=== PATIENT | female | born 1985 | race Caucasian/White ===

== ENCOUNTER 2017-01-02 19:41 | Emergency (ER) | payer MEDICAID ==
--- NOTE | 2017-01-03 04:15 | RADRPT ---
PROCEDURE: Obstetrical ultrasound. CLINICAL INDICATION: Pelvic pain. TECHNIQUE: Multiple sonographic images of the pelvis were obtained with transabdominal and endova ginal technique. Images were obtained with benton scale and color Doppler. COMPARISON: None. FINDINGS: No abnormal uterine mass is identified. There is an intrauterine gestational sac with a yolk sac id entified. No pole is identified. The mean sac diameter averages 0.59 cm, compatible with 5 we eks and 1 day gestation. No subchorionic collection is identified. There is trace free fluid within the right adnexa. The right ovary measures 4.6 x 3.6 x 3.4 cm and the left ovary measures 2.8 x 1 172.4 cm. There is normal flow to both ovaries. There is an anechoi c cyst within the right ovary measuring 3.1 x 2.9 x 2.6 cm. There is no suspicious adnexal mass iden tified. IMPRESSION: Intrauterine gestational sac with a yolk sac identified, compatible with 5 weeks and 1 day. No pole is identified at this time. Short-term follow-up ultrasound is recommended. Right ovarian 3.1 cm cyst. Trace pelvic free fluid. .Mark Ward MD, MD Date Time Electronically viewed and signed by .Mark Ward MD, MD on 01/03/2017 04:15 .T/
--- NOTE | 2017-01-03 04:54 | ERD ---
ER Documentation Chief Complaint Chief Complaint HPI This is an otherwise healthy 31-year-old female is approximately 6 weeks , who comes to the emergency department for complaints of left lower quadrant pain 2 weeks. Patient rates the pain as an intermittent 5 out of 10 cramping pelvic pain. She denies fever, chills, vaginal bleeding, vaginal discharge, dysuria or hematuria. She denies other abdominal pain, vomiting or diarrhea but does note mild nausea. Patient A1. ROS All systems reviewed and are negative except as per history of present illness. Medications Home Meds Active Scripts Acetaminophen* (Tylophen*) 500 Mg Capsule, 1 CAP PO Q6H Y for PAIN AND OR ELEVATED TEMP, #20 CAP Prov:NELLY BETTS PA-C 02/01/17 Allergies Allergies: Coded Allergies: No Known Allergy (Unverified , 01/03/17) Physical Exam Physical Exam Const: Well-developed, well-nourished, in no acute distress Head: Atraumatic Eyes: Normal Conjunctiva ENT: Normal External Ears, Nose and Mouth. Neck: Full range of motion..~ No meningismus. Resp: Clear to auscultation bilaterally Cardio: Regular rate and rhythm, no murmurs Abd: Soft, non tender, non distended. Normal bowel sounds Skin: No petechiae or rashes Back: No midline or flank tenderness Ext: No cyanosis, or edema Neur: Awake and alert Psych: Normal Mood and Affect Results 24 hrs Laboratory Tests Test 01/03/17 12:16 Lab Scanned Report [id number] Procedures/MDM PROCEDURE: Obstetrical ultrasound. CLINICAL INDICATION: Pelvic pain. TECHNIQUE: Multiple sonographic images of the pelvis were obtained with transabdominal and endovaginal technique. Images were obtained with benton scale and color Doppler. COMPARISON: None. FINDINGS: No abnormal uterine mass is identified. There is an intrauterine gestational sac with a yolk sac identified. No pole is identified. The mean sac diameter averages 0.59 cm, compatible with 5 weeks and 1 day gestation. No subchorionic collection is identified. There is trace free fluid within the right adnexa. The right ovary measures 4.6 x 3.6 x 3.4 cm and the left ovary measures 2.8 x 1 172.4 cm. There is normal flow to both ovaries. There is an anechoic cyst within the right ovary measuring 3.1 x 2.9 x 2.6 cm. There is no suspicious adnexal mass identified. IMPRESSION: Intrauterine gestational sac with a yolk sac identified, compatible with 5 weeks and 1 day. No pole is identified at this time. Short-term follow-up ultrasound is recommended. Right ovarian 3.1 cm cyst. Trace pelvic free fluid. .Mark Ward MD, Date Time Electronically viewed and signed by .Mark Ward MD, MD on 01/03/2017 04:15 .T/ CC: TAYE GAO PA-C This is an otherwise healthy, nontoxic and well-nourished 31-year-old female who presents the emergency department for complaints of intermittent left sided pelvic pain over the past 2 weeks. Denied other symptoms was nontender to palpation of her abdomen. No signs reviewed and within normal limits upon arrival. Vaginal ultrasound revealed an intrauterine consisting of yolk and sac estimated at 5 weeks 1 day. No pole is identified. There is no evidence of ectopic noted on ultrasound. She is also noted to have a right-sided ovarian cyst. History, physical, imaging and lab studies consistent with left lower pelvic pain of early . At this time low suspicion for ectopic , appendicitis, diverticulitis, bowel obstruction, cholecystitis, urinary tract infection, pyelonephritis, or other acute abdomen. Patient received Zofran while in emergency department and reported improvement of nausea symptoms. I have recommended for her to follow-up with her [employer] specialist in 48 hours for a repeat ultrasound. Resources provided. Patient agrees with plan. Based on patient's history of present illness and physical examination the decision was made to discharge. The patient was re-evaluated after ED treatment and stabilizing measures, and symptoms have improved. There is no evidence of life threatening injuries or illnesses at this time. On re-examination, patient resting in no distress, stable vital signs, reports feeling better and safe for discharge with outpatient follow up with PMD in 1-2 days. Patient given return precautions. Departure Diagnosis: Primary Impression: Pelvic pain during Additional Impressions: Ovarian cyst Laterality: left Qualified Code: N83.202 - Cyst of left ovary Nausea TAYE GAO PA-C Jan 03, 2017 04:54
== END 2017-01-02 22:00 | disposition home or self-care (01) ==
LOC: FTE 19:41 → E/R 22:00
DX: O26.891 Other specified pregnancy related conditions, first trimester (principal); R10.2 Pelvic and perineal pain; O34.81 Maternal care for other abnormalities of pelvic organs, first trimester; R11.0 Nausea; Z3A.01 Less than 8 weeks gestation of pregnancy
CPT/HCPCS: 76801; 76817

== ENCOUNTER 2017-01-30 11:38 | Emergency (ER) | payer MEDICAID ==
[~2017-01-30] VITALS: Wt 49.2 kg
[2017-01-30 14:10] LABS: BASOPHIL # 0.1 10^3/ul (0.0-0.1); BASOPHILS % 0.7 % (0.0-2.0); EOSINOPHILS # 0.2 10^3/ul (0.0-0.5); EOSINOPHILS % 2.4 % (0.0-7.0); HEMATOCRIT 41.2 % (37.0-47.0); HEMOGLOBIN 14.3 g/dl (12.0-16.0); LYMPHOCYTES # 1.8 10^3/ul (0.8-2.9); LYMPHOCYTES % 25.8 % (15.0-51.0); MEAN CORPUSCULAR HEMOGLOBIN 31.2 pg (29.0-33.0); MEAN CORPUSCULAR HGB CONC 34.7 g/dl (32.0-37.0); MEAN PLATELET VOLUME 9.3 fl (7.4-10.4); MONOCYTE # 0.5 10^3/ul (0.3-0.9); MONOCYTES % 7.1 % (0.0-11.0); NEUTROPHIL # 4.3 10^3/ul (1.6-7.5); NEUTROPHILS % 63.7 % (39.0-77.0); PLATELET COUNT 266 10^3/UL (140-415); RED BLOOD COUNT 4.58 10^6/ul (4.20-5.40); RED CELL DISTRIBUTION WIDTH 11.6 % (11.5-14.5); WHITE BLOOD COUNT 6.8 10^3/ul (4.8-10.8)
--- NOTE | 2017-01-30 14:34 | RADRPT ---
PROCEDURE: Obstetrical ultrasound . CLINICAL INDICATION: Vaginal bleeding TECHNIQUE: Multiple sonographic images of the pelvis were obtained utilizing a transabdominal tech nique. The images were reviewed on a PACS workstation. COMPARISON: US PELVIS 01/03/2017 FINDINGS: There is a single intrauterine gestation with the crown-rump length measuring 1.9 cm and the gestati onal sac measuring 2.1 cm, corresponding to a gestational age of 7 weeks and 5 days. No heart tones are identified. The ovaries are normal. No significant free fluid is present within the pelvis. No abnormal adnexal masses are present. RPTAT: AA IMPRESSION: Single intrauterine at 7 weeks and 5 days. No heart tones noted, consistent with demise. .Gonzalez Ramachandran MD, Date Time Electronically viewed and signed by .Gonzalez Ramachandran MD, on 01/30/2017 14:34 .S/
[2017-01-30 15:06] LABS: ADD UMIC YES; UR ASCORBIC ACID 20 mg/dL (NEGATIVE); UR BACTERIA FEW /HPF (NONE SEEN); UR BILIRUBIN (Dip) NEGATIVE (NEGATIVE); UR BLOOD (Dip) 1+ mg/dL (NEGATIVE); UR CLARITY SLIGHTLY CLOUDY (CLEAR); UR COLOR YELLOW (YELLOW); UR GLUCOSE (Dip) NEGATIVE (NEGATIVE); UR KETONES (Dip) NEGATIVE (NEGATIVE); UR LEUKOCYTE ESTERASE (Dip) NEGATIVE Leu/ul (NEGATIVE); UR MUCUS FEW /HPF (NONE SEEN); UR NITRITE (Dip) NEGATIVE (NEGATIVE); UR RBC 1 /HPF (0-5); UR SPECIFIC GRAVITY (Dip) 1.011 (1.003-1.030); UR SQUAMOUS EPITHELIAL CELL FEW /HPF (FEW); UR TOTAL PROTEIN (Dip) NEGATIVE (NEGATIVE); UR UROBILINOGEN (Dip) NEGATIVE (NEGATIVE)
--- NOTE | 2017-01-30 15:32 | ERD ---
ER Documentation Chief Complaint Chief Complaint PT 8 WKS PG, VAG BLEEDING TODAY HPI 31 yr old female complaining of vaginal bleeding x 2 days with cramps that started 2 days ago. No clots. Dr. Alexis Nix is OBGYN. A1. LNMP: Dec 07. Has history of ovarian cysts ROS All systems reviewed and are negative except as per history of present illness. Allergies Allergies: Coded Allergies: No Known Allergy (Unverified , 01/03/17) PMhx/Soc Medical and Surgical Hx: pt denies Medical Hx, pt denies Surgical Hx Hx Alcohol Use: No Hx Substance Use: No Hx Tobacco Use: No Smoking Status: Never smoker Physical Exam Vitals Vital Signs Date Time Temp Pulse Resp B/P Pulse Ox O2 Delivery O2 Flow Rate FiO2 01/30/17 11:41 98.1 75 18 100/52 100 Physical Exam GENERAL: The patient is well-appearing, well-nourished, in no acute distress CHEST: Clear to auscultation bilaterally. There are no rales, wheezes or rhonchi. HEART: Regular rate and rhythm. No murmurs, clicks, rubs or gallops. No S3 or S4. ABDOMEN:Soft, nontender and nondistended. Good bowel sounds. No rebound or guarding. No gross peritonitis. No gross organomegaly or masses. No Lacy sign or McBurney point tenderness. BACK: No midline or flank tenderness. Result Diagram: 01/30/17 1401 Results 24 hrs Laboratory Tests Test 01/30/17 13:52 01/30/17 14:01 Urine Color YELLOW Urine Clarity SLIGHTLY CLOUDY Urine pH 6.0 Urine Specific Johnson 1.011 Urine Ketones NEGATIVEmg/dL Urine Nitrite NEGATIVEmg/dL Urine Bilirubin NEGATIVEmg/dL Urine Urobilinogen NEGATIVEmg/dL Urine Leukocyte Esterase NEGATIVELeu/ul Urine Microscopic RBC 1/HPF Urine Microscopic WBC 3/HPF Urine Squamous Epithelial Cells FEW/HPF Urine Bacteria FEW/HPF Urine Mucus FEW/HPF Urine Hemoglobin 1+mg/dL Urine Glucose NEGATIVEmg/dL Urine Total Protein NEGATIVEmg/dl White Blood Count 6.810^3/ul Red Blood Count 4.5810^6/ul Hemoglobin 14.3g/dl Hematocrit 41.2% Mean Corpuscular Volume 90.0fl Mean Corpuscular Hemoglobin 31.2pg Mean Corpuscular Hemoglobin Concent 34.7g/dl Red Cell Distribution Width 11.6% Platelet Count 75520^3/UL Mean Platelet Volume 9.3fl Neutrophils % 63.7% Lymphocytes % 25.8% Monocytes % 7.1% Eosinophils % 2.4% Basophils % 0.7% Nucleated Red Blood Cells % 0.0/100WBC Neutrophils # 4.310^3/ul Lymphocytes # 1.810^3/ul Monocytes # 0.510^3/ul Eosinophils # 0.210^3/ul Basophils # 0.110^3/ul Nucleated Red Blood Cells # 0.010^3/ul Procedures/MDM DIAGNOSTIC IMAGING REPORT Patient: AUNDREA PADGETT : 1985 Age: 31 Sex: F MR #: [id number] DOS: 01/30/17 1341 Ordering MD: BRENTON SEXTON PA-C Location: [facility] Room/Bed: PROCEDURE: Obstetrical ultrasound . CLINICAL INDICATION: Vaginal bleeding TECHNIQUE: Multiple sonographic images of the pelvis were obtained utilizing a transabdominal technique. The images were reviewed on a PACS workstation. COMPARISON: US PELVIS 01/03/2017 FINDINGS: There is a single intrauterine gestation with the crown-rump length measuring 1.9 cm and the gestational sac measuring 2.1 cm, corresponding to a gestational age of 7 weeks and 5 days. No heart tones are identified. The ovaries are normal. No significant free fluid is present within the pelvis. No abnormal adnexal masses are present. RPTAT: AA IMPRESSION: Single intrauterine at 7 weeks and 5 days. No heart tones noted, consistent with demise. MDM: 31 yr old female complaining of vaginal bleeding. Patient's blood work is stable and within normal limits. Patient is likely experiencing a miscarriage as no heart tones are appreciated on ultrasound. Patient is Rh positive and does not require rhogam injection at this time. Patient does not have UTI seen on urinalysis. Patient is recommended to follow up with PMD in 1-2 days for close evaluation. I have low suspicion for ectopic as IUP is seen on ultrasound. Patient is discharged with strict ER precautions. All questions answered at discharge Departure Diagnosis: Primary Impression: Miscarriage Condition: Stable Patient Instructions: Miscarriage (Incomplete) Referrals: [facility] YOU HAVE RECEIVED A MEDICAL SCREENING EXAM AND THE RESULTS INDICATE THAT YOU DO NOT HAVE A CONDITION THAT REQUIRES URGENT TREATMENT IN THE EMERGENCY DEPARTMENT. FURTHER EVALUATION AND TREATMENT OF YOUR CONDITION CAN WAIT UNTIL YOU ARE SEEN IN YOUR DOCTORS OFFICE WITHIN THE NEXT 1-2 DAYS. IT IS YOUR RESPONSIBILITY TO MAKE AN APPOINTMENT FOR FOLOW-UP CARE. IF YOU HAVE A PRIMARY DOCTOR --you should call your primary doctor and schedule an appointment IF YOU DO NOT HAVE A PRIMARY DOCTOR YOU CAN CALL OUR PHYSICIAN REFERRAL HOTLINE AT IF YOU CAN NOT AFFORD TO SEE A PHYSICIAN YOU CAN CHOSE FROM THE FOLLOWING [facility] [address] [facility] [address] [facility] [facility] [address] [facility] [address] [facility] [address] [facility] [address] Additional Instructions: FOLLOW UP WITH YOUR PRIMARY CARE PHYSICIAN TOMORROW.Return to this facility if you are not improving as expected. MIGUEL SEXTON PA-C Jan 30, 2017 15:32
== END 2017-01-30 15:45 | disposition home or self-care (01) ==
LOC: FTE 11:38
DX: O03.9 Complete or unspecified spontaneous abortion without complication (principal); R10.2 Pelvic and perineal pain
CPT/HCPCS: 36415; 76801; 81001; 84702; 85025; 86900; 86901; Z7502

== ENCOUNTER 2017-02-01 18:40 | Emergency (ER) | payer MEDICAID ==
[~2017-02-01] VITALS: Ht 160 cm; Wt 50.0 kg
[2017-02-01 19:18] VITALS: Ht 160 cm; Wt 50.0 kg
--- NOTE | 2017-02-01 20:14 | ERD ---
ER Documentation Chief Complaint Chief Complaint Vag spot; pt verbalized she had miscarriage since Monday HPI Patient is a 31-year-old female, G3, P1, A1, presents ED for concerns of vaginal bleeding 3 days now. Patient was seen here 2 days ago. At that time she was told that she had findings of field deborah Higgins. Patient presents today for recheck. Patient states she continues to have vaginal bleeding. Patient denies any clot passage. Patient denies any pain at this time. Patient denies any nausea, vomiting, abdominal pain, chest pain, shortness breath or loss consciousness. Patient denies any dizziness or lightheadedness. Patient's JUICE WEIGHER is Dr. Alexis Nix. Patient states that she did see her PRODUCTION CONSULTANT yesterday who advised her that if her bleeding did not subside in a week she needs to return for " pill". Lastt menstrual period was on 12-08-16. ROS All systems reviewed and are negative except as per history of present illness. Medications Home Meds Active Scripts Acetaminophen* (Tylophen*) 500 Mg Capsule, 1 CAP PO Q6H Y for PAIN AND OR ELEVATED TEMP, #20 CAP Prov:NELLY BETTS PA-C 02/01/17 Allergies Allergies: Coded Allergies: No Known Allergy (Unverified , 01/03/17) PMhx/Soc Hx Alcohol Use: No Hx Substance Use: No Hx Tobacco Use: No Physical Exam Vitals Vital Signs Date Time Temp Pulse Resp B/P Pulse Ox O2 Delivery O2 Flow Rate FiO2 02/01/17 19:18 98.8 72 20 108/70 99 Physical Exam GENERAL: Well-developed, well-nourished female. Appears in no acute distress. HEAD: Normocephalic, atraumatic. EYES: Pupils are equally reactive bilaterally. EOMs grossly intact. No conjunctival erythema. LUNG: Clear to auscultation bilaterally. No rhonchi, wheezing, rales or coarse breath sounds. HEART: Regular rate and rhythm. No murmurs, rubs or gallops. ABDOMEN: No scars, ecchymosis or rashes noted. Soft, nontender, and nondistended. Positive bowel sounds in all four quadrants. No rebound tenderness , no guarding. (-) McBurney's point tenderness. EXTREMITIES: Equal pulses bilaterally. No peripheral clubbing, cyanosis or edema. No unilateral leg swelling. NEUROLOGIC: Alert and oriented. Moving all four extremities without any difficulty. Normal speech. Steady gait. SKIN: Normal color. Warm and dry. No rashes or lesions. Result Diagram: 02/01/171952 Results 24 hrs Laboratory Tests Test 02/01/17 19:53 White Blood Count 8.610^3/ul Red Blood Count 4.2910^6/ul Hemoglobin 13.6g/dl Hematocrit 38.6% Mean Corpuscular Volume 90.0fl Mean Corpuscular Hemoglobin 31.7pg Mean Corpuscular Hemoglobin Concent 35.2g/dl Red Cell Distribution Width 11.8% Platelet Count 42352^3/UL Mean Platelet Volume 9.7fl Neutrophils % 57.9% Lymphocytes % 32.9% Monocytes % 5.7% Eosinophils % 2.4% Basophils % 0.8% Nucleated Red Blood Cells % 0.0/100WBC Neutrophils # 5.010^3/ul Lymphocytes # 2.810^3/ul Monocytes # 0.510^3/ul Eosinophils # 0.210^3/ul Basophils # 0.110^3/ul Nucleated Red Blood Cells # 0.010^3/ul Beta HCG, Quantitative 76662.0mIU/ml Procedures/MDM ED COURSE: The patient was stable throughout ED course. I kept the patient and/or family informed of laboratory and diagnostic imaging results throughout the ED course. DIAGNOSTIC IMAGING: Read by radiologist. Patient: AUNDREA PADGETT : 1985 Age: 31 Sex: F MR #: [id number] DOS: 02/01/171945 Ordering MD: NELLY BETTS PA-C Location: [facility] Room/Bed: PROCEDURE: OB Ultrasound. CLINICAL INDICATION: Positive test. No heart tones visualized on prior study dated 01/30/2017. TECHNIQUE: Ultrasound of the pelvis was performed with transabdominal sonography in the axial and sagittal planes. COMPARISON: 01/30/2017. FINDINGS: There is a single intrauterine gestational sac. pole and yolk sac are present. There is no heart motion. [place]-rump length is 1.34 cm. Mean sac diameter is 2.21 cm. Menstrual age by ultrasound dates is 7 weeks 2 days. The right ovary appears normal measuring 3.4 x 2.1 x 2.0 cm. The left ovary appears normal measuring 3.8 x 1.7 x 2.3 cm. Color Doppler and pulsed Doppler sonography demonstrate normal flow to the ovaries. There is no other pelvic mass or free fluid. IMPRESSION: 1. demise at 7 weeks 2 days menstrual age by ultrasound dates. RPTAT: QQ .Christian Hernandez MD, Date Time Electronically viewed and signed by .Christian Hernandez MD, on 02/01/2017 20:14 .R/ CC: NELLY BETTS PA-C MEDICAL DECISION MAKING: This is a 31-year-old female, G3, P1, A1, presents to the ED for concerns of vaginal bleeding. Patient was seen here 2 days ago and told that her ultrasound findings were consistent with demise. Patient was advised to recheck in 2 days. Patient continues to have light bleeding. She denies any heavy bleeding or large clot passages. Vital signs were reviewed. Patient was afebrile. Patient was hemodynamically stable. Patient[place] [address]. Patient was noted to be O+ . No indicationfor RhoGam. [place], [place] 59385, noted to be downtrending. CBC showed no evidence of systemic infection or severe anemia. Pelvic US showed demise at 7 weeks 2 days menstrual age by ultrasound dates. Given these findings, the patient's presentation is most consistent with demise. Advised patient that she will need to follow-up with her PRODUCTION CONSULTANT. Patient may need to take an pill or have a D&C on an outpatient basis. Patient was advised to discuss this with her PRODUCTION CONSULTANT. I have a much lower clinical concern for ectopic , ruptured ectopic , molar , anembyronic . Unable to rule out incomplete at this time. PRESCRIPTIONS: Tylenol DISCHARGE: At this time, patient is stable for discharge and outpatient management.Patient and/or family understands that her vaginal bleeding can be a normal finding or a sign of miscarriage. I have instructed the patient to follow-up with her OBGYN in 1-2 days for further monitoring. I have instructed the patient to promptly return to the ER at any time for any new or worsening symptoms including increased pain, nausea, vomiting, continued bleeding, weakness, syncope or fever. The patient and/or family expressed understanding of and agreement with this plan. All questions were answered. Home care instructions were provided. Disclaimer: Inadvertent spelling and grammatical errors are likely due to EHR/ dictation software use and do not reflect on the overall quality of patient care. Also, please note that the electronic time recorded on this note does not necessarily reflect the actual time of the patient encounter. Departure Diagnosis: Primary Impression: Spontaneous Additional Impression: demise Condition: Stable Patient Instructions: Bleeding During Early , Miscarriage, Spontaneous (Completed) Referrals: [facility] PRODUCTION CONSULTANT REFERRAL LIST Additional Instructions: Follow-up with your PRODUCTION CONSULTANT in the next 1-2 days. You may need a D&C and outpatient basis. NELLY BETTS PA-C Feb 01, 2017 20:14
[2017-02-01 20:18] LABS: BASOPHIL # 0.1 10^3/ul (0.0-0.1); BASOPHILS % 0.8 % (0.0-2.0); EOSINOPHILS # 0.2 10^3/ul (0.0-0.5); EOSINOPHILS % 2.4 % (0.0-7.0); HEMATOCRIT 38.6 % (37.0-47.0); HEMOGLOBIN 13.6 g/dl (12.0-16.0); LYMPHOCYTES # 2.8 10^3/ul (0.8-2.9); LYMPHOCYTES % 32.9 % (15.0-51.0); MEAN CORPUSCULAR HEMOGLOBIN 31.7 pg (29.0-33.0); MEAN CORPUSCULAR HGB CONC 35.2 g/dl (32.0-37.0); MEAN PLATELET VOLUME 9.7 fl (7.4-10.4); MONOCYTE # 0.5 10^3/ul (0.3-0.9); MONOCYTES % 5.7 % (0.0-11.0); NEUTROPHILS % 57.9 % (39.0-77.0); PLATELET COUNT 272 10^3/UL (140-415); RED BLOOD COUNT 4.29 10^6/ul (4.20-5.40); RED CELL DISTRIBUTION WIDTH 11.8 % (11.5-14.5); WHITE BLOOD COUNT 8.6 10^3/ul (4.8-10.8)
[2017-02-01] MEDS ORDERED: ACET500C5 PO (21:17)
== END 2017-02-01 21:25 | disposition home or self-care (01) ==
LOC: FTE 18:40
DX: O03.9 Complete or unspecified spontaneous abortion without complication (principal); R10.2 Pelvic and perineal pain
CPT/HCPCS: 36415; 76801; 76817; 84702; 85025; Z7502